=== PATIENT | female | born 1945 | race Caucasian/White ===

== ENCOUNTER → 2017-09-02 | Outpatient (CLI) | payer MEDICARE ==
[~2017-09-02] MED LIST: ATOR10TA24 PO; ENAL20TA99 PO; HYDR-2966 PO; IBUP-56 PO; IOPAMIDOL 76% 75 ML INFUS BTL 75 ML ONE; MULT-989 PO; NS(*) 0.9% 10 ML VIAL 10 ML ONE; ONDA4TAB PO; OXYC-373 PO; OXYC-374 PO; OXYC-865 PO; POTA20TA10 PO; PRED20TA6 PO; VITA1CAP46 PO
[2017-09-02 12:37] LABS: PLATELET COUNT, AUTOMATED 187 K/uL (150-450)
--- NOTE | 2017-09-02 16:13 | RADIOLOGY IMAGING REPORT ---
FACILITY: [facility] PATIENT NAME: Claire Han : 1945 MR: [id number] V: [id number] EXAM DATE: ORDERING PHYSICIAN: REYMUNDO TALBOT TECHNOLOGIST: Location: [facility] Patient: Claire Han : 1945 Visit/Account:[id number] Date of Sevice: 09/02/2017 CT abdomen with IV contrast CT pelvis with IV contrast History: Acute abdominal pain. History of peptic ulcer disease. COMPARISON STUDIES: none. TECHNIQUE: Axial CT images were obtained through the abdomen and pelvis during injection of nonioni c iodinated intravenous contrast. Reformatted coronal and sagittal images were also obtained. Contrast: 75 ml of Isovue-370 IV contrast. One of the following dose optimization techniques was utilized in the performance of this exam: Autom ated exposure control; adjustment of the mA and/or kV according to the patient's size; or use of an i terative reconstruction technique. Specific details can be referenced in the facility's radiology C T exam operational policy. FINDINGS: Chest bases: Negative Liver: Normal. Gallbladder and bile ducts: Gallbladder is present. Bile ducts are normal caliber. Spleen: size is normal. Pancreas: negative Adrenal glands: negative Kidneys: Right kidney anterior lateral cyst, 6 mm. Left kidney lower pole lateral cyst, 4 mm. Ther e are no renal stones or hydronephrosis. Pelvic structures: Uterus is surgically absent. Ovaries are not visualized. Bowel and mesenteries: Gastric antrum wall may be mildly thickened. The gastric fundus and body is incompletely distended. Duodenal bulb and C-loop are unremarkable. Colon is unremarkable. There is a normal appendix in the right lower abdominal quadrant. Ascites: None Free air: None Vessels: Minimal mural calcification of the abdominal aorta and right common iliac artery. Musculoskeletal: Negative Body wall: negative Lymph node assessment: negative IMPRESSION: 1. Potential thickening of the gastric antrum wall could be due to gastritis or peptic ulcer disease . The remainder of the stomach is poorly distended, and incompletely assessed by CT imaging. Consid er upper GI or upper endoscopy for further assessment. Report Dictated By: Cheri Suazo MD at 09/02/2017 2:56 PM Report E-Signed By: Cheri Suazo MD at 09/02/2017 4:09 PM ROLFN:SANDRITA
== END ==
LOC: CT 12:18
PROVIDERS: ATTEND Nurse Practitioner Family
DX: N28.1 Cyst of kidney, acquired (principal)
CPT/HCPCS: 36415; 74177; 85025; Q9967; 82040; 82247; 82310; 82374; 82435; 82565; 82947; 84075; 84132; 84155; 84295; 84450; 84460; 84520

== ENCOUNTER 2017-10-19 00:31 | Day surgery (SDC) | payer MEDICARE ==
[~2017-10-19] VITALS: Ht 154.9 cm; Wt 58.5 kg
[2017-10-19] VITALS (9 sets, daily range): BP systolic 74–141; BP diastolic 26–71
[~2017-10-19 00:31] MED LIST changes: +CALC-852 PO; +ENAL-242 PO; +GOLYTE PO; -IOPAMIDOL 76% 75 ML INFUS BTL 75 ML ONE; +MAGN100T PO; -NS(*) 0.9% 10 ML VIAL 10 ML ONE; +OMEP40CA48 PO; +SUCR1TAB85 PO; +TETR15DR9 OP; +VITA100T4 PO
[2017-10-19] MEDS ORDERED: NORMOSOL R SOLN(*) 1000 ML BAG 1,000 ML IV PRN (08:45)
[2017-10-19] MEDS ORDERED: LIDOCAINE/SOD BICARB 8.4% SYR ID ONE (08:45)
[2017-10-19] MEDS ORDERED: PROPOFOL EMUL(*) 10MG/ML 20 ML 40 ML ONE (08:52)
[2017-10-19] MEDS ORDERED: LIDOCAINE MPF 1% 5 ML VIAL ONE (08:52)
--- NOTE | 2017-10-19 10:28 | Short(Outpt) Discharge Summary ---
Discharge Summary Reason for Hosp/Final Diag: (1) Colon cancer screening Status: Chronic Hospital Course & Plan: EGD with biopsies and colonoscopy completed without problems. (2) Family history of polyps in the colon (3) Epigastric abdominal pain Status: Chronic (4) History of peptic ulcer disease Status: Chronic (5) Gastric wall thickening Status: Chronic Departure Discharge to: Home, Self Care Discharge Instructions Home Meds Active Scripts Peg/Electrolytes (GOLYTELY SOLUTION) 4,000 Ml Soln, 1 GAL PO ONCE, #1 GAL 0 Refills Prov:JUAN VASQUES MD 09/27/17 Reported Medications Calcium Carbonate/Vitamin D3 (CALCIUM + VITAMIN D TABLET) 1 Each Tablet, 1 EA PO QDAY 09/26/17 Magnesium Amino Acid Chelate (MAGNESIUM) Unknown Strength Tablet, PO QDAY 09/26/17 Vitamin E Mixed (VITAMIN E) Unknown Strength Tablet, PO QDAY 09/26/17 Tetrahydrozoline Hcl (EYE DROPS) Unknown Strength Drops, OP PRN 09/26/17 Omeprazole (OMEPRAZOLE) 40 Mg Capsule.dr, 40 MG PO BID, CAP 09/26/17 Sucralfate (CARAFATE) 1 Gm Tablet, 1 GM PO QID 09/26/17 Enalapril Maleate (VASOTEC) 20 Mg Tablet, 20 MG PO QDAY 09/26/17 Vitamin B Complex (VITAMIN B COMPLEX) 1 Each Capsule, 1 EACH PO QDAY, CAPSULE 08/18/16 Multivitamins-Min/Fa/Ginkgo (ONE DAILY FOR WOMEN 50+ ADV TB) 1 Each Tablet, 1 EACH PO DAILY 08/22/14 Potassium Chloride (Potassium Chloride) 20 Meq Tablet.er, 1 TAB PO DAILY 08/22/14 Hydrochlorothiazide (HYDROCHLOROTHIAZIDE) 25 Mg Tablet, 1 TAB PO QDAY TAKE ONE TABLET BY MOUTH EVERY DAY 06/07/14 Follow up Referrals: General Surgery - 11/15/17 @ Surgery, General with Juan Vasques Md You have a follow up appointment scheduled with Dr. Vasques on 11/15/17, at 11:00am. Diet: Regular Activity: As Tolerated Special Instructions: Both upper endoscopy and colonoscopy completed without problems and your colon prep was excellent (Good Job!!). I didn't find any ulcers, inflammation, cancer, or polyps in your upper GI tract or your colon. I performed some routine biopsies in your stomach and duodenum and I will see you back in my office on November 15 and we'll discuss these results and see how your symptoms are at that time. In any case, you should have another colonoscopy in 10 years, health permitting, if normal, this will be your last colonoscopy. JUAN VASQUES MD Oct 19, 2017 10:28
== END 2017-10-19 11:49 | disposition home or self-care (01) ==
LOC: OR 00:31
PROVIDERS: ATTEND Surgery
DX: Z12.11 Encounter for screening for malignant neoplasm of colon (principal); R10.13 Epigastric pain; Z83.71 Family history of colonic polyps
CPT/HCPCS: 00812; 43239; 87077; 88305; G0121; J2001; J2704

== ENCOUNTER 2018-07-26 10:06 | Outpatient (RCR) | payer MEDICARE | END 2018-07-26 18:00 | disposition home or self-care (01) | LOC: EDSTATUS 10:06 → MAMO 10:06 | PROVIDERS: ATTEND Nurse Practitioner Family | DX: Z02.9 Encounter for administrative examinations, unspecified (principal) ==

== ENCOUNTER → 2018-08-17 | Outpatient (CLI) | payer MEDICARE ==
--- NOTE | 2018-08-17 11:22 | RADIOLOGY IMAGING REPORT ---
FACILITY: [facility] [place] PATIENT NAME: Claire Han : 1945 MR: [id number] V: [id number] EXAM DATE: ORDERING PHYSICIAN: ULI HAIDER TECHNOLOGIST: [place] [facility] [place] : 1945 Visit/Account:[id number] Date of Sevice: 08/17/2018 DEXA Scan Clinical history: Decreased vitamin D. Comparison: DEXA scan from 12/19/2013. LUMBAR SPINE: The bone mineral density (BMD) measured from L1-L4 correlates with a Z-score of 1.4 and a T-score of -0.6 which is Normal as defined by the World Health Organization. The corresponding risk of fracture in the lumbar spine is 1-2 times increased compared with a young adult reference population. This v alue has increased by 2.1 % since the prior study. More than 5% change is considered significant. HIP: Bone mineral density (BMD) measured in the LEFT total hip region correlates with a Z-score 0.2 and a T-score of -1.7 which is osteopenia as defined by the World Health Organization. The corresponding r isk of fracture in the hip is 3-4 times increased compared to a young adult reference population. Thi s value has decrease by 4.9 % since the prior study. More than 5% change is considered significant. T score left femoral neck -2.5 Bone mineral density (BMD) measured in the Femoral Neck region measures 0.696 g/cm?. IMPRESSION: 1. Lumbar spine: Normal. There has been 2.1% increase in the bone mineral density since the previou s exam. 2. Left Total Hip: Osteopenia. There has been 4.9% decrease in the bone mineral density since the p revious exam. 3. Femoral Neck: Bone Mineral Density is 0.696 g/cm? The next DEXA scan of this patient should include the following sites: L1-L4 and the left hip. FRAX? WHO Fracture Risk Assessment Tool link: <http://www.shef.ac.uk/FRAX/tool.jsp?locationValue=9> PLEASE NOTE: 1) The World Health Organization defines low BMD as follows: T-score Normal > -1 Osteopenia < -1 and > -2.5 Osteoporosis < -2.5 without fractures Established osteoporosis < -2.5 with fractures 2) In general, you may wish to consider: Diagnosis Treatment Follow-up DEXA Normal BMD Prevention 2-3 years Osteopenia Prevention/therapy 1-2 years Osteoporosis Therapy Yearly 3) Fracture risk estimated from the T-score is more accurate for vertebral fractures (often spontane ous) than for hip fractures. Report Dictated By: Marcelle Harris MD at 08/17/2018 11:16 AM Report E-Signed By: Marcelle Harris MD at 08/17/2018 11:17 AM ROLFN:SANDRITA
--- NOTE | 2018-08-18 08:47 | RADIOLOGY IMAGING REPORT ---
[place] [facility] [place] NAME: DIANE BOLTON : [id number] MR: [id number] V: [id number] EXAM DATE: ORDERING PHYSICIAN: ULI HAIDER TECHNOLOGIST: Sharonda Mitchell PROCEDURE:BILATERAL DIGITAL SCREENING MAMMOGRAM WITH CAD ASSISTED INTERPRETATION & 3D TOMOSYNTHESIS COMPARISON:Prior mammograms 04/15/16, 01/24/15, 12/19/13. INDICATIONS:SCREENING FINDINGS: The breasts are almost entirely fatty. The parenchymal pattern has remained stable allowing for difference in mammographic technique & patient positioning. There is an area of postsurgical scaring in the 12 o'clock position of the Left breast from previous biopsy. DIAGNOSTIC CATEGORY 2--BENIGN FINDING. RECOMMENDATIONS: ROUTINE MAMMOGRAM AND CLINICAL EVALUATION. IMPRESSION: BIRADS 2: Benign finding. No significant abnormality is seen. Dictated by: Marcelle Harris M.D. on 08/17/2018 at 16:05 Transcribed by: SINAN on 08/18/2018 at 7:55 Approved by: Marcelle Harris M.D. on 08/18/2018 at 8:46 [facility]
== END ==
LOC: MAMO 01:13
PROVIDERS: ATTEND Nurse Practitioner Family
DX: Z12.31 Encounter for screening mammogram for malignant neoplasm of breast (principal); M85.88 Other specified disorders of bone density and structure, other site
CPT/HCPCS: 77063; 77067; 77080

== ENCOUNTER 2019-01-09 16:34 | Inpatient (IN) | payer MEDICARE ==
--- NOTE | 2019-01-09 16:47 | ER Report ---
History and Physical Time Seen By MD: 16:45 HPI/ROS CHIEF COMPLAINT: Hypertension, general malaise HISTORY OF PRESENT ILLNESS: Patient is a 73-year-old female here with complaints of general malaise for the past several days ever since going on a trip to [place]. Patient did start Zyrtec which is a new medication for her. She also was increased on her enalapril which she takes in concert with hydrochlorothiazide. On Tuesday, the nurse took her blood pressure and found that she was mildly hypertensive with a systolic in the 150s however today upon recheck she was found to have blood pressure systolic greater than 200, diastolic around 100. Patient denies fevers, chills, chest pain, shortness breath, nausea, vomiting. REVIEW OF SYSTEMS: Constitutional: No fever, no chills. Eyes: No discharge. ENT: No sore throat. Cardiovascular: No chest pain, no palpitations. Worsening hypertension Respiratory: No cough, no shortness of breath. Gastrointestinal: No abdominal pain, no vomiting. Genitourinary: No hematuria. Musculoskeletal: No back pain. Skin: No rashes. Neurological: No headache. Allergies: Coded Allergies: hydrocodone (Unverified Adverse Reaction, Intermediate, NAUSEA/VOMITING, 01/09/19) Home Meds Active Scripts Omeprazole (OMEPRAZOLE) 40 Mg Capsule.dr, 1 CAP PO DAILY, #60 CAP 6 Refills Prov:JUAN VASQUES MD 11/21/17 Sucralfate (CARAFATE) 1 Gm Tablet, 1 GM PO QID PRN for DYSPEPSIA, #60 TAB 3 Refills Prov:JUAN VASQUES MD 11/21/17 Reported Medications Calcium Carbonate/Vitamin D3 (CALCIUM + VITAMIN D TABLET) 1 Each Tablet, 1 EA PO QDAY 09/26/17 Magnesium Amino Acid Chelate (MAGNESIUM) Unknown Strength Tablet, PO QDAY 09/26/17 Vitamin E Mixed (VITAMIN E) Unknown Strength Tablet, PO QDAY 09/26/17 Tetrahydrozoline Hcl (EYE DROPS) Unknown Strength Drops, OP PRN 09/26/17 Enalapril Maleate (VASOTEC) 20 Mg Tablet, 20 MG PO QDAY 09/26/17 Vitamin B Complex (VITAMIN B COMPLEX) 1 Each Capsule, 1 EACH PO QDAY, CAPSULE 08/18/16 Multivitamins-Min/Fa/Ginkgo (ONE DAILY FOR WOMEN 50+ ADV TB) 1 Each Tablet, 1 EACH PO DAILY 08/22/14 Potassium Chloride (Potassium Chloride) 20 Meq Tablet.er, 1 TAB PO DAILY 08/22/14 Hydrochlorothiazide (HYDROCHLOROTHIAZIDE) 25 Mg Tablet, 1 TAB PO QDAY TAKE ONE TABLET BY MOUTH EVERY DAY 06/07/14 Hx Smoking: No Smoking Status: Never Smoker Hx Alcohol Use: Yes Constitutional Vital Sign - Last 24 Hours 01/09/19 01/09/19 01/09/19 01/09/19 16:34 16:40 16:45 16:54 Temp 97.6 Pulse 61 62 Resp 12 B/P (MAP) 214/102 (139) 209/107 (141) Pulse Ox 95 O2 Delivery Room Air 01/09/19 01/09/19 01/09/19 17:00 17:04 17:18 Pulse 56 Resp 27 B/P (MAP) 211/96 (134) 189/102 (131) Pulse Ox 95 Physical Exam General Appearance: The patient is alert, has no immediate need for airway protection and no signs of toxicity. No acute distress Eyes: Pupils equal and round no pallor or injection. ENT, Mouth: Mucous membranes are moist. Respiratory: There are no retractions, lungs are clear to auscultation. Cardiovascular: Regular rate and rhythm. Gastrointestinal: Abdomen is soft and non tender, no masses, bowel sounds normal. Neurological: No focal neurological deficits on examination Skin: Warm and dry, no rashes. Musculoskeletal: Neck is supple non tender. Extremities are nontender, nonswollen and have full range of motion. DIFFERENTIAL DIAGNOSIS: After history and physical exam differential diagnosis was considered for essential versus secondary hypertension, electrolyte abnormality, infection, medication side effect Medical Decision Making Data Points Result Diagram: 01/09/19 1651 01/09/19 1651 Laboratory Hematology Test 01/09/19 16:51 Red Blood Count 5.26 M/uL (4.17-5.56) Mean Corpuscular Volume 87.1 fL (80.0-96.0) Mean Corpuscular Hemoglobin 29.9 pg (26.0-33.0) Mean Corpuscular Hemoglobin Concent 34.3 g/dL (32.0-36.0) Red Cell Distribution Width 13.1 % (11.5-14.5) Mean Platelet Volume 9.2 fL (7.2-11.1) Neutrophils (%) (Auto) 47.4 % (39.4-72.5) Lymphocytes (%) (Auto) 37.9 % (17.6-49.6) Monocytes (%) (Auto) 13.1 % (4.1-12.4) Eosinophils (%) (Auto) 0.8 % (0.4-6.7) Basophils (%) (Auto) 0.8 % (0.3-1.4) Nucleated RBC Relative Count (auto) 0.1 /100WBC Neutrophils # (Auto) 2.7 K/uL (2.0-7.4) Lymphocytes # (Auto) 2.2 K/uL (1.3-3.6) Monocytes # (Auto) 0.7 K/uL (0.3-1.0) Eosinophils # (Auto) 0.0 K/uL (0.0-0.5) Basophils # (Auto) 0.0 K/uL (0.0-0.1) Nucleated RBC Absolute Count (auto) 0.00 K/uL Sodium Level 139 mmol/L (137-145) Potassium Level 3.7 mmol/L (3.5-5.0) Chloride Level 100 mmol/L (98-107) Carbon Dioxide Level 25 mmol/L (22-31) Blood Urea Nitrogen 10 mg/dl (7-18) Creatinine 0.70 mg/dl (0.52-1.04) Glomerular Filtration Rate Calc > 60.0 Random Glucose 107 mg/dl (75-110) Calcium Level 10.9 mg/dl (8.4-10.2) Total Bilirubin 0.7 mg/dl (0.2-1.3) Aspartate Amino Transf (AST/SGOT) 35 U/L (0-35) Alanine Aminotransferase (ALT/SGPT) 38 U/L (0-56) Alkaline Phosphatase 114 U/L (0-126) Troponin I < 0.012 ng/ml Total Protein 8.1 g/dl (6.3-8.2) Albumin 4.8 g/dl (3.5-5.0) Lipase 93 U/L (23-300) Chemistry Test 01/09/19 16:51 White Blood Count 5.7 k/uL (4.5-11.0) Red Blood Count 5.26 M/uL (4.17-5.56) Hemoglobin 15.7 g/dL (12.0-16.0) Hematocrit 45.8 % (34.0-47.0) Mean Corpuscular Volume 87.1 fL (80.0-96.0) Mean Corpuscular Hemoglobin 29.9 pg (26.0-33.0) Mean Corpuscular Hemoglobin Concent 34.3 g/dL (32.0-36.0) Red Cell Distribution Width 13.1 % (11.5-14.5) Platelet Count 193 K/uL (150-450) Mean Platelet Volume 9.2 fL (7.2-11.1) Neutrophils (%) (Auto) 47.4 % (39.4-72.5) Lymphocytes (%) (Auto) 37.9 % (17.6-49.6) Monocytes (%) (Auto) 13.1 % (4.1-12.4) Eosinophils (%) (Auto) 0.8 % (0.4-6.7) Basophils (%) (Auto) 0.8 % (0.3-1.4) Nucleated RBC Relative Count (auto) 0.1 /100WBC Neutrophils # (Auto) 2.7 K/uL (2.0-7.4) Lymphocytes # (Auto) 2.2 K/uL (1.3-3.6) Monocytes # (Auto) 0.7 K/uL (0.3-1.0) Eosinophils # (Auto) 0.0 K/uL (0.0-0.5) Basophils # (Auto) 0.0 K/uL (0.0-0.1) Nucleated RBC Absolute Count (auto) 0.00 K/uL Glomerular Filtration Rate Calc > 60.0 Calcium Level 10.9 mg/dl (8.4-10.2) Total Bilirubin 0.7 mg/dl (0.2-1.3) Aspartate Amino Transf (AST/SGOT) 35 U/L (0-35) Alanine Aminotransferase (ALT/SGPT) 38 U/L (0-56) Alkaline Phosphatase 114 U/L (0-126) Troponin I < 0.012 ng/ml Total Protein 8.1 g/dl (6.3-8.2) Albumin 4.8 g/dl (3.5-5.0) Lipase 93 U/L (23-300) ED Course/Re-evaluation ED Course Patient is a 73-year-old female here with complaints of hypertension which is progressively worsened over the course of past several days. Patient recently went to [place] and started taking Zyrtec for allergies. She did also have an increase in her enalapril which she takes for an antihypertensive as well as hydrochlorothiazide. Labs were unremarkable, creatinine was stable, there is no leukocytosis. EKG was ordered and pending at time of admission. Patient was bolu sed with labetalol 20 mg however due to the patient's bradycardia, repeat bolus was not administered. Patient only had mild improvement down into the upper 180s systolic, 100 upper 90s diastolic. I discussed the patient with Dr. Atkins who is the hospitalist on today who admitted the patient for further treatment. Troponin was found to be negative which was completed due to the patient's complaint of chest pressure. Patient also complained of some blurry vision however she is legally blind at baseline. Patient was given amlodipine 5 mg by mouth and patient was admitted to the floor for further care. Decision to Disposition Date: Jan 09, 2019 Decision to Disposition Time: 17:47 Depart Departure Latest Vital Signs Vital Signs Date Time Temp Pulse Resp B/P (MAP) Pulse Ox O2 Delivery O2 Flow Rate FiO2 01/09/19 17:18 189/102 (131) 01/09/19 17:04 56 27 95 01/09/19 16:45 97.6 Room Air Impression: Primary Impression: Hypertensive urgency Condition: Condition Unchanged Disposition: Admitted from ER Referrals: REYMUNDO TALBOT (PCP) ANTONIETA CERDA DO Jan 09, 2019 16:47
[2019-01-09] MEDS ORDERED: LABETALOL HCL 100 MG/20ML VIAL IVP ONE (16:55)
[2019-01-09 17:07] LABS: PLATELET COUNT, AUTOMATED 193 K/uL (150-450)
[2019-01-09] MEDS ORDERED: amLODIPine BESYL(*) 5 MG TAB PO ONE (17:45)
--- NOTE | 2019-01-09 18:03 | EKG ---
FACILITY: PATIENT NAME: DIANE BOLTON : [id number] MR: [id number] V: [id number] EXAM DATE: ORDERING PHYSICIAN: ANTONIETA CERDA TECHNOLOGIST: Test Reason : chest discomfort Blood Pressure : / mmHG Vent. Rate : 060 BPM Atrial Rate : 060 BPM P-R Int : 160 ms QRS Dur : 082 ms QT Int : 442 ms P-R-T Axes : 063 003 066 degrees QTc Int : 442 ms Sinus rhythm with marked sinus arrhythmia Otherwise normal ECG When compared with ECG of 13-AUG-2014 09:35, Nonspecific T wave abnormality no longer evident in Inferior leads Nonspecific T wave abnormality, improved in Lateral leads Confirmed by CRYSTAL BEY ([id number]) on 01/09/2019 6:13:57 PM Referred By: Confirmed By:CRYSTAL BEY
[2019-01-09] MEDS ORDERED: ENALAPRIL MALEATE 10 MG TAB PO SCH (22:05)
[2019-01-09] MEDS ORDERED: CALCIUM CARBONATE 500 MG CHEW PO PRN (22:05)
[2019-01-09] MEDS ORDERED: ACETAMINOPHEN 325 MG TAB PO PRN (22:05)
[2019-01-09] MEDS ORDERED: INFLUENZA VIRUS VAC 0.5ML SYR IM ONLY ONE (22:05)
[2019-01-09] MEDS: PANTOPRAZOLE SOD 40 MG TABEC PO SCH (22:36)
[2019-01-09 23:56] VITALS: BP 144/60
--- NOTE | 2019-01-10 00:05 | History & Physical ---
History of Present Illness History of Present Illness 73yo female with hypertension who came to the ER for elevated BP. About a month ago, she started taking Zyrtec for allergies. She was in [facility] and developed a sore throat, sores on the roof of her mouth, chills and tiredness. She never saw a provider. The sores in her mouth and sore throat resolved. She has continued to take the Zyrtec. The tiredness has continued. She has never had allergies in the past. She has noted more labile BP over the last couple weeks. She was increased on her enalapril from 20mg in the morning and 5mg was added in the evening. Yesterday, she switched it to just 25mg in the evening, so missed the morning dose. For the last month, she has had intermittent chest pain that lasts a couple minutes. It is mild but occurs multiple times a day. There are no alleviating or aggravating factors. No associated radiation or SOB or nausea. She is responsible for her medications despite her legal blindness. History Problems: (1) Dyspepsia Status: Chronic (2) Legal blindness Status: Chronic (3) HTN (hypertension) Other Past Medical Hx Rare alcohol. No tobacco. Home Meds Active Scripts Omeprazole (OMEPRAZOLE) 40 Mg Capsule.dr, 1 CAP PO DAILY, #60 CAP 6 Refills Prov:JUAN VASQUES MD 11/21/17 Sucralfate (CARAFATE) 1 Gm Tablet, 1 GM PO QID PRN for DYSPEPSIA, #60 TAB 3 Refills Prov:JUAN VASQUES MD 11/21/17 Reported Medications Calcium Carbonate/Vitamin D3 (CALCIUM + VITAMIN D TABLET) 1 Each Tablet, 1 EA PO QDAY 09/26/17 Magnesium Amino Acid Chelate (MAGNESIUM) Unknown Strength Tablet, PO QDAY 09/26/17 Vitamin E Mixed (VITAMIN E) Unknown Strength Tablet, PO QDAY 09/26/17 Tetrahydrozoline Hcl (EYE DROPS) Unknown Strength Drops, OP PRN 09/26/17 Enalapril Maleate (VASOTEC) 20 Mg Tablet, 20 MG PO QDAY 09/26/17 Vitamin B Complex (VITAMIN B COMPLEX) 1 Each Capsule, 1 EACH PO QDAY, CAPSULE 08/18/16 Multivitamins-Min/Fa/Ginkgo (ONE DAILY FOR WOMEN 50+ ADV TB) 1 Each Tablet, 1 EACH PO DAILY 08/22/14 Potassium Chloride (Potassium Chloride) 20 Meq Tablet.er, 1 TAB PO DAILY 08/22/14 Hydrochlorothiazide (HYDROCHLOROTHIAZIDE) 25 Mg Tablet, 1 TAB PO QDAY TAKE ONE TABLET BY MOUTH EVERY DAY 06/07/14 Allergies: Coded Allergies: hydrocodone (Unverified Adverse Reaction, Intermediate, NAUSEA/VOMITING, 01/09/19) Patient History: FH: Alzheimers disease MOTHER, , Age:92 FH: cancer BROTHER OR SISTER, FH: heart failure BROTHER OR SISTER, FH: kidney cancer MOTHER, , Age:92 BROTHER OR SISTER FH: prostate cancer FATHER, , Age:94 FH: skin cancer BROTHER OR SISTER Polyps in the colon Visual disorder BROTHER OR SISTER Hx Smoking: No Smoking Status: Never Smoker Caffeine/Cups Per Day: NONE Hx Alcohol Use: Yes Hx Substance Use Disorder: No Social Drug Use: Never Review of Systems All Systems Reviewed/Normal: Yes, Except as Noted Exam Vital Signs Vital Signs Date Time Temp Pulse Resp B/P (MAP) Pulse Ox O2 Delivery O2 Flow Rate FiO2 01/09/19 18:00 225/111 (149) 01/09/19 17:53 54 12 97 01/09/19 16:45 97.6 Room Air General Appearance: Alert, Awake, No Acute Distress Neuro: Other Eyes: Other (Pupils are sluggish) Cardiovascular: Regular Rate and Rhythm Respiratory: Clear to Auscultation GI: Abd Soft and Non-Tender Extremities: Warm, Perfused; No Edema Integumentary: No Jaundice, No Cyanosis Medical Decision Making Data Points Result Diagram: 01/09/19165001/09/191650 Item Value Date Time Neutrophils (%) (Auto) 47.4 % 01/09/19 165 Lymphocytes (%) (Auto) 37.9 % 01/09/19 165 Troponin I < 0.012 ng/ml 01/09/19 165 Calcium Level 10.9 mg/dl H 01/09/19 165 Total Bilirubin 0.7 mg/dl 01/09/19 165 Aspartate Amino Transf (AST/SGOT) 35 U/L 01/09/19 1651 Alanine Aminotransferase (ALT/SGPT) 38 U/L 01/09/19 165 Urine RBC None /HPF 01/09/19 1845 Urine WBC None /HPF 01/09/191844 Urine Leukocyte Esterase Negative 01/09/191844 EKG / Imaging EKG Interpretation Vent. Rate : 060 BPM Atrial Rate : 060 BPM P-R Int : 160 ms QRS Dur : 082 ms QT Int : 442 ms P-R-T Axes : 063 003 066 degrees QTc Int : 442 ms Sinus rhythm with marked sinus arrhythmia Otherwise normal ECG When compared with ECG of 13-AUG-2014 09:35, Nonspecific T wave abnormality no longer evident in Inferior leads Nonspecific T wave abnormality, improved in Lateral leads Confirmed by CRYSTAL BEY ([id number]) on 01/09/2019 6:13:57 PM Assessment and Plan Problems: (1) Hypertensive urgency Status: Acute Assessment & Plan: She has had labile blood pressures for a couple of weeks. SBP in the ER was in the low 200's and DBP was in the low 100's. BUN/Cr wnl. Troponin wnl. Her BP didn't improve much with labetalol and she became a bit bradycardic. Yesterday, she moved her enalapril to be at night. She is responsible for her medications despite her legal blindness. Zyrtec was started about a month ago so will be stopped. She was given one dose of amlodipine 5mg in t ER, which has dropped her SBP to the 170's and DBP to the 90's. She will be continued on the enalapril but at 20mg instead of 25mg and will be continued at night. HCTZ to be continued in the morning. She will get prn Vasotec for elevated BP. She gets intermittent chest pain, but I suspect it is related to her dyspepsia. See below. (2) Dyspepsia Status: Chronic Assessment & Plan: She had an EGD and colonscopy in 11/02. They were normal. She was to continue the omeprazole and Carafate. She admits that she only takes those medications intermittently. Will give a dose of Protonix tonight and then scheduled in the morning. Will see if it helps her chronic intermittent mild chest pain. Carafate could be added if it is not improving. (3) Legal blindness Status: Chronic Copies to: REYMUNDO TALBOTP ; Venous Thromboembolism Antithrombotics Is Pt On Any Antithrombotics?: No Exam Sepsis Risk: No Definite Risk CRYSTAL BEY MD Jan 10, 2019 00:05
[2019-01-10 06:28] LABS: PLATELET COUNT, AUTOMATED 182 K/uL (150-450)
[2019-01-10 07:41] VITALS: BP 165/67
[2019-01-10] MEDS: PANTOPRAZOLE SOD 40 MG TABEC PO SCH (08:19)
[2019-01-10] MEDS ORDERED: HYDROCHLOROTHIAZIDE 25 MG TAB PO SCH (09:00)
[2019-01-10] MEDS ORDERED: POTASSIUM CHL 20 MEQ TABCR PO SCH (09:00)
--- NOTE | 2019-01-10 09:10 | Hospitalist Depart ---
Discharge Summary Reason for Hosp/Final Diag: (1) Hypertensive urgency Status: Acute Hospital Course & Plan: She has had labile blood pressures for a couple of weeks. She was given a dose of labetalol, but this caused bradycardia. We resumed her home medications, and now her blood pressure is under better control. It is suspected that she can not see her medication bottles and has not been taking them appropriately. Home health has been requested to help her with medication administration. (2) Dyspepsia Status: Chronic Hospital Course & Plan: She had an EGD and colonscopy in 11/02. They were normal. She remains on the omeprazole and Carafate. (3) Legal blindness Status: Chronic Departure Latest Vital Signs Vital Signs 01/10/19 01/10/19 03:55 07:41 Temp 97.4 Pulse 50 Resp 14 B/P (MAP) 165/67 (99) Pulse Ox 98 O2 Delivery Room Air Weight (Pounds): 129 Result Diagram: 01/10/1939 01/10/19538 Condition: Improved Discharge: Home, Home Health Home Health RN Follow Up For: Medication Management, Nursing Assessment Discharge Instructions Home Meds Active Scripts Omeprazole (OMEPRAZOLE) 40 Mg Capsule.dr, 1 CAP PO DAILY, #60 CAP 6 Refills Prov:JUAN VASQUES MD 11/21/17 Sucralfate (CARAFATE) 1 Gm Tablet, 1 GM PO QID PRN for DYSPEPSIA, #60 TAB 3 Refills Prov:JUAN VASQUES MD 11/21/17 Reported Medications Calcium Carbonate/Vitamin D3 (CALCIUM + VITAMIN D TABLET) 1 Each Tablet, 1 EA PO QDAY 09/26/17 Magnesium Amino Acid Chelate (MAGNESIUM) Unknown Strength Tablet, PO QDAY 09/26/17 Vitamin E Mixed (VITAMIN E) Unknown Strength Tablet, PO QDAY 09/26/17 Tetrahydrozoline Hcl (EYE DROPS) Unknown Strength Drops, OP PRN 09/26/17 Enalapril Maleate (VASOTEC) 20 Mg Tablet, 20 MG PO QDAY 09/26/17 Vitamin B Complex (VITAMIN B COMPLEX) 1 Each Capsule, 1 EACH PO QDAY, CAPSULE 08/18/16 Multivitamins-Min/Fa/Ginkgo (ONE DAILY FOR WOMEN 50+ ADV TB) 1 Each Tablet, 1 EACH PO DAILY 08/22/14 Potassium Chloride (Potassium Chloride) 20 Meq Tablet.er, 1 TAB PO DAILY 08/22/14 Hydrochlorothiazide (HYDROCHLOROTHIAZIDE) 25 Mg Tablet, 1 TAB PO QDAY TAKE ONE TABLET BY MOUTH EVERY DAY 06/07/14 Diet: Regular Activity: As Tolerated Copies to: REYMUNDO MUIR ; Venous Thromboembolism Antithrombotics Is Pt On Any Antithrombotics?: No [id number]-[id number] Certification Face to Face Home Health Certification Patient's Primary Care Provider: Reymundo Muir Institutional Provider conducted the [id number] encounter. Electronic Undersigning Physician Certifies Home Health. I certify that the patient has been under my care and that I had a [id number] encounter that meets the physician [id number] encounter requirements with this patient. This patient is home-bound due to safety issues and continues to require assistance with ADL's. I certify that based on my findings, that Nursing, Aides and the following Home Health services are medically necessary: Medical Necessity: Nursing Date Face to Face Conducted: Jan 10, 2019 JUAN FERNANDO DO Jan 10, 2019 09:10
== END 2019-01-10 12:10 | disposition home health service (06) | DRG 305 ==
LOC: ER 16:48 → EDBEDREQSVC 18:01 → MED 18:06
PROVIDERS: ADMIT Internal Medicine; ATTEND Internal Medicine
DX: I16.0 Hypertensive urgency (principal); R10.13 Epigastric pain; H54.8 Legal blindness, as defined in USA; I10 Essential (primary) hypertension; Z88.5 Allergy status to narcotic agent
CPT/HCPCS: 36415; 81001; 82040; 82247; 82310; 82374; 82435; 82565; 82947; 83690; 83735; 84075; 84132; 84155; 84295; 84450; 84460; 84484; 84520; 85025; 93005; 96374; 99284

== ENCOUNTER 2019-01-10 17:22 | Emergency (ER) | payer MEDICARE ==
--- NOTE | 2019-01-10 17:43 | ER Report ---
History and Physical Time Seen By MD: 17:29 Hx. of Stated Complaint: PATIENT WAS SEEN IN THE ER AND ADMITTED TO THE HOSPITAL FOR HYPERTENSION. SHE WAS RELEASED THIS MORNING AND CONTINUES TO HAVE HIGH BLOOD PRESSURE HPI/ROS CHIEF COMPLAINT: High blood pressure HISTORY OF PRESENT ILLNESS: This is a 73-year-old female who presents to the emergency department for high blood pressure. Patient was seen and evaluated in the emergency department yesterday, admitted to the medical floor for elevated blood pressure, was discharged today around noon, her blood pressure was 165/64, was started on her routine medications which included enalapril and has chlorothiazide. Patient states she's been doing okay at home, a friend stopped by and took her blood pressure noted her blood pressure to be 200 systolic. No other complaints, no headaches, no chest pain or shortness of breath. No nausea or vomiting. No fevers or chills. There was a concern that perhaps she is not managing her blood pressure medications appropriately, she is legally blind. The patient does state that she keeps her 5 mg enalapril on the top shelf, 20 mg enalapril and the metal shelf and her hydrochlorothiazide and potassium on the bottom shelf. REVIEW OF SYSTEMS: Constitutional: No fever, no chills. Eyes: No discharge. ENT: No sore throat. Cardiovascular: As above. Respiratory: No cough, no shortness of breath. Gastrointestinal: No abdominal pain, no vomiting. Genitourinary: No hematuria. Musculoskeletal: No back pain. Skin: No rashes. Neurological: No headache. Allergies: Coded Allergies: hydrocodone (Unverified Adverse Reaction, Intermediate, NAUSEA/VOMITING, 01/09/19) Home Meds Active Scripts Omeprazole (OMEPRAZOLE) 40 Mg Capsule.dr, 1 CAP PO DAILY, #60 CAP 6 Refills Prov:JUAN VASQUES MD 11/21/17 Sucralfate (CARAFATE) 1 Gm Tablet, 1 GM PO QID PRN for DYSPEPSIA, #60 TAB 3 Refills Prov:JUAN VASQUES MD 11/21/17 Reported Medications Calcium Carbonate/Vitamin D3 (CALCIUM + VITAMIN D TABLET) 1 Each Tablet, 1 EA PO QDAY 09/26/17 Magnesium Amino Acid Chelate (MAGNESIUM) Unknown Strength Tablet, PO QDAY 09/26/17 Vitamin E Mixed (VITAMIN E) Unknown Strength Tablet, PO QDAY 09/26/17 Tetrahydrozoline Hcl (EYE DROPS) Unknown Strength Drops, OP PRN 09/26/17 Enalapril Maleate (VASOTEC) 20 Mg Tablet, 20 MG PO QDAY 09/26/17 Vitamin B Complex (VITAMIN B COMPLEX) 1 Each Capsule, 1 EACH PO QDAY, CAPSULE 08/18/16 Multivitamins-Min/Fa/Ginkgo (ONE DAILY FOR WOMEN 50+ ADV TB) 1 Each Tablet, 1 EACH PO DAILY 08/22/14 Potassium Chloride (Potassium Chloride) 20 Meq Tablet.er, 1 TAB PO DAILY 08/22/14 Hydrochlorothiazide (HYDROCHLOROTHIAZIDE) 25 Mg Tablet, 1 TAB PO QDAY TAKE ONE TABLET BY MOUTH EVERY DAY 06/07/14 Past Medical/Surgical History The patient has a past medical and surgical history of "leaky valve", angina, hypertension, hypercholesterolemia, GERD, gastric ulcer, Ehrman shoulder pain, arthritis, broken collarbone, broken ribs, opticatrophy, legally blind, hysterectomy, angiogram, cataract surgery with implants, breast biopsy and lumpectomy. Reviewed Nurses Notes: Yes Hx Smoking: No Smoking Status: Never Smoker Hx Substance Use Disorder: No Hx Alcohol Use: Yes Constitutional Vital Sign - Last 24 Hours 01/10/19 01/10/19 01/10/19 01/10/19 17:28 17:28 17:32 17:33 Temp 97.7 Pulse 60 Resp 20 B/P (MAP) 235/101 (145) 235/101 208/93 (131) Pulse Ox 97 96 O2 Delivery Room Air 01/10/19 01/10/19 01/10/19 01/10/19 17:39 17:42 17:50 17:52 Pulse 56 58 Resp 24 12 B/P (MAP) 215/91 (132) 210/91 (130) Pulse Ox 94 95 01/10/19 01/10/19 01/10/19 01/10/19 18:00 18:02 18:07 18:10 Pulse 56 56 Resp 11 11 B/P (MAP) 213/93 (133) 198/82 (120) Pulse Ox 96 99 01/10/19 01/10/19 01/10/19 01/10/19 18:17 18:20 18:27 18:30 Pulse 55 54 Resp 7 5 B/P (MAP) 200/79 (119) 214/96 (135) Pulse Ox 92 93 01/10/19 01/10/19 01/10/19 01/10/19 18:37 18:42 18:50 18:52 Pulse 56 53 55 Resp 8 21 27 B/P (MAP) 220/92 (134) Pulse Ox 92 92 93 01/10/19 01/10/19 01/10/19 01/10/19 18:57 19:00 19:07 19:10 Pulse 57 55 Resp 9 19 B/P (MAP) 206/85 (125) 206/83 (124) Pulse Ox 92 91 01/10/19 01/10/19 01/10/19 01/10/19 19:17 19:20 19:27 19:30 Pulse 54 54 Resp 11 23 B/P (MAP) 181/87 (118) 184/83 (116) 134/74 (94) Pulse Ox 93 91 01/10/19 01/10/19 01/10/19 01/10/19 19:37 19:40 19:45 19:50 Pulse 54 56 Resp 16 13 B/P (MAP) 178/67 (104) 158/68 (98) Pulse Ox 92 86 01/10/19 19:55 Pulse 53 Resp 7 Pulse Ox 90 Physical Exam General Appearance: The patient is alert, has no immediate need for airway protection and no signs of toxicity. Eyes: Pupils equal and round no pallor or injection. ENT, Mouth: Mucous membranes are moist. Respiratory: There are no retractions, lungs are clear to auscultation. Cardiovascular: Regular rate and rhythm. Gastrointestinal: Abdomen is soft and non tender, no masses, bowel sounds normal. Neurological: Alert and oriented x4. Moving all extremities, following all commands. No focal neuro deficits. Skin: Warm and dry, no rashes. Musculoskeletal: Neck is supple non tender. Extremities are nontender, nonswollen and have full range of motion. DIFFERENTIAL DIAGNOSIS: After history and physical exam differential diagnosis was considered for stroke, TIA, myocardial infarction, hypertensive crisis, hypertensive urgency. Medical Decision Making ED Course/Re-evaluation ED Course The patient was admitted to room. A history and physical were obtained. Differential diagnoses were considered. After a lengthy discussion with patient and her son who is at the bedside, we did decide to proceed with a more conservative approach as the patient was asymptomatic upon arrival. She was given a 0.1 mg by mouth clonidine tablets, a Christianson this did end up improving her blood pressure, as noted below, I also spoke with the hospitalist regarding the case, as noted below, patient was discharged home, she will follow-up with her primary care provider and likely establish care with our gerontologist. They were agreeable with this plan of care and discharged home. 01/10/2019 7:31:18 pm I did speak with Dr. Hyde, the hospitalist, as the patient is asymptomatic, the blood pressures have begun to improve after the 0.1 mg clonidine, he'll I both felt the patient would be appropriate to go home and follow-up with her primary care provider tomorrow. Also recommended following up with our gerontologist Dr. Glover. 01/10/2019 7:43:48 pm the hospital pressures 130s systolic and 150s systolic, patient remained asymptomatic while in the emergency department. Decision to Disposition Date: Jan 10, 2019 Decision to Disposition Time: 19:43 Depart Departure Latest Vital Signs Vital Signs Date Time Temp Pulse Resp B/P (MAP) Pulse Ox O2 Delivery O2 Flow Rate FiO2 01/10/19 19:55 53 7 90 01/10/19 19:50 158/68 (98) 01/10/19 17:28 97.7 Room Air Impression: Primary Impression: HTN (hypertension) Condition: Improved Disposition: HOME OR SELF-CARE Referrals: AALIYAH TALBOT (PCP) 2 Days JUSTIN GLOVER MD Patient Instructions: Hypertension (ED) Additional Instructions: Please follow up with Aaliyah tomorrow, for reevaluation. It is always best to take the blood pressures first thing in the morning, but not on a daily basis, typically every other day or once a week. Please speak with her about an ambulatory 24 hour blood pressure monitor. Continue your regular medications. Drink plenty of fluids. Get plenty of rest tonight. Return to the ED for any other concerns or worsening symptoms. Please contact Dr. Glover's office to schedule an appointment for gerontologic care. Problem Qualifiers Primary Impression: HTN (hypertension) Hypertension type: essential hypertension Qualified Codes: I10 - Essential (primary) hypertension JAIR BALESP-BC Jan 10, 2019 17:43
[2019-01-10] MEDS ORDERED: cloNIDine HCL 0.1 MG TAB PO ONE (18:25)
[2019-01-10 19:50] VITALS: BP 158/68
== END 2019-01-10 19:58 | disposition home or self-care (01) ==
LOC: ER 17:25
DX: I10 Essential (primary) hypertension (principal)
CPT/HCPCS: 99283; A9270

== ENCOUNTER 2019-01-13 18:13 | Emergency (ER) | payer MEDICARE ==
--- NOTE | 2019-01-13 18:23 | ER Report ---
History and Physical Time Seen By MD: 18:21 HPI/ROS CHIEF COMPLAINT: elevated blood pressure and headache behind eyes. HISTORY OF PRESENT ILLNESS: This is a 73 year old female. She has been having problems with blood pressure recently. Is on Enalapril 20mg in the morning and 5mg in the evening, Hydrochlorathiazide 25mg in the morning, and started on Amlodipine 2.5mg a few days ago. Today with severe elevation of blood pressure again, despite this. With headache. Legally blind, so no vision changes, but pain behind eyes. Has sister with similar problems who also had similar trouble and ended up having an WA followed by anoxic brain injury, so she is worried about this. No fevers or chils. No shortness of breath. No chest pain. Has had some swelling in ankles since starting the amlodipine. No nausea or vomiting. Normal bowel and bladder function. Allergies: Coded Allergies: hydrocodone (Unverified Adverse Reaction, Intermediate, NAUSEA/VOMITING, 01/09/19) Home Meds Active Scripts Clonidine Hcl (CLONIDINE HCL) 0.1 Mg Tablet, 0.1 MG PO BID PRN for HYPERTENSION, #20 TAB 0 Refills take one tablet twice a day if needed for elevated blood pressure Prov:LARRY ROY MD 01/13/19 Omeprazole (OMEPRAZOLE) 40 Mg Capsule.dr, 1 CAP PO DAILY, #60 CAP 6 Refills Prov:JUAN VASQUES MD 11/21/17 Sucralfate (CARAFATE) 1 Gm Tablet, 1 GM PO QID PRN for DYSPEPSIA, #60 TAB 3 Refills Prov:JUAN VASQUES MD 11/21/17 Reported Medications Calcium Carbonate/Vitamin D3 (CALCIUM + VITAMIN D TABLET) 1 Each Tablet, 1 EA PO QDAY 09/26/17 Magnesium Amino Acid Chelate (MAGNESIUM) Unknown Strength Tablet, PO QDAY 09/26/17 Vitamin E Mixed (VITAMIN E) Unknown Strength Tablet, PO QDAY 09/26/17 Tetrahydrozoline Hcl (EYE DROPS) Unknown Strength Drops, OP PRN 09/26/17 Enalapril Maleate (VASOTEC) 20 Mg Tablet, 20 MG PO QDAY 09/26/17 Vitamin B Complex (VITAMIN B COMPLEX) 1 Each Capsule, 1 EACH PO QDAY, CAPSULE 08/18/16 Multivitamins-Min/Fa/Ginkgo (ONE DAILY FOR WOMEN 50+ ADV TB) 1 Each Tablet, 1 EACH PO DAILY 08/22/14 Potassium Chloride (Potassium Chloride) 20 Meq Tablet.er, 1 TAB PO DAILY 08/22/14 Hydrochlorothiazide (HYDROCHLOROTHIAZIDE) 25 Mg Tablet, 1 TAB PO QDAY TAKE ONE TABLET BY MOUTH EVERY DAY 06/07/14 Reviewed Nurses Notes: Yes Hx Smoking: No Smoking Status: Never Smoker Hx Substance Use Disorder: No Hx Alcohol Use: Yes Constitutional Vital Sign - Last 24 Hours 01/13/19 01/13/19 01/13/19 01/13/19 18:25 18:30 18:45 19:17 Temp 98.2 Pulse 70 64 64 Resp 20 12 20 B/P (MAP) 225/97 228/85 (132) Pulse Ox 93 96 93 O2 Delivery Room Air 01/13/19 01/13/19 01/13/19 01/13/19 19:19 19:30 19:45 19:54 Pulse 60 56 Resp 22 8 B/P (MAP) 229/98 (141) 165/72 (103) Pulse Ox 93 94 01/13/19 01/13/19 01/13/19 01/13/19 20:00 20:15 20:23 20:30 Pulse 57 56 54 Resp 24 9 24 B/P (MAP) 141/62 (88) Pulse Ox 94 89 90 01/13/19 01/13/19 01/13/19 01/13/19 21:00 21:07 21:15 21:30 Pulse 51 50 Resp 11 20 B/P (MAP) 124/31 (62) 138/64 (88) 151/72 (98) Pulse Ox 93 94 01/13/19 01/13/19 01/13/19 21:38 21:45 22:00 Pulse 48 Resp 9 B/P (MAP) 145/55 (85) 132/54 (80) 116/49 (71) Pulse Ox 89 Physical Exam General Appearance: The patient is alert. No acute distress. Non-toxic in appearance. Eyes: Pupils are equal, round. No pallor, injection or icterus. ENT: Mucous membranes are moist. Normal oral mucosa. Respiratory: Lungs are clear to auscultation. Cardiovascular: Regular rate and rhythm. No murmurs, gallops or rubs. Normal capillary refill. Trace edema bilateral ankles. Gastrointestinal: Abdomen is soft and non tender. Nondistended. Normal active bowel sounds. Neurological: Alert and oriented x3. No focal neurologic deficits other than chronic visual troubles. Moving all extremities without deficits. Skin: Warm and dry. No rashes. DIFFERENTIAL DIAGNOSIS: After history and physical exam, differential diagnosis was considered for hypertensive urgency with headache. Medical Decision Making Data Points Result Diagram: 01/13/19 1832 01/13/19 1832 Laboratory Hematology Test 01/13/19 18:32 01/13/19 19:15 Red Blood Count 5.19 M/uL (4.17-5.56) Mean Corpuscular Volume 87.3 fL (80.0-96.0) Mean Corpuscular Hemoglobin 29.7 pg (26.0-33.0) Mean Corpuscular Hemoglobin Concent 34.0 g/dL (32.0-36.0) Red Cell Distribution Width 13.3 % (11.5-14.5) Mean Platelet Volume 9.0 fL (7.2-11.1) Neutrophils (%) (Auto) 40.7 % (39.4-72.5) Lymphocytes (%) (Auto) 43.7 % (17.6-49.6) Monocytes (%) (Auto) 13.6 % (4.1-12.4) Eosinophils (%) (Auto) 1.3 % (0.4-6.7) Basophils (%) (Auto) 0.7 % (0.3-1.4) Nucleated RBC Relative Count (auto) 0.0 /100WBC Neutrophils # (Auto) 2.0 K/uL (2.0-7.4) Lymphocytes # (Auto) 2.2 K/uL (1.3-3.6) Monocytes # (Auto) 0.7 K/uL (0.3-1.0) Eosinophils # (Auto) 0.1 K/uL (0.0-0.5) Basophils # (Auto) 0.0 K/uL (0.0-0.1) Nucleated RBC Absolute Count (auto) 0.00 K/uL Erythrocyte Sedimentation Rate 9 mm/HOUR (0-30) Sodium Level 132 mmol/L (137-145) Potassium Level 3.4 mmol/L (3.5-5.0) Chloride Level 95 mmol/L (98-107) Carbon Dioxide Level 24 mmol/L (22-31) Blood Urea Nitrogen 10 mg/dl (7-18) Creatinine 0.60 mg/dl (0.52-1.04) Glomerular Filtration Rate Calc > 60.0 Random Glucose 116 mg/dl (75-110) Calcium Level 10.7 mg/dl (8.4-10.2) Total Bilirubin 0.9 mg/dl (0.2-1.3) Aspartate Amino Transf (AST/SGOT) 33 U/L (0-35) Alanine Aminotransferase (ALT/SGPT) 32 U/L (0-56) Alkaline Phosphatase 110 U/L (0-126) Troponin I < 0.012 ng/ml Total Protein 8.2 g/dl (6.3-8.2) Albumin 4.8 g/dl (3.5-5.0) Urine Color Colorless Urine Clarity Clear Urine pH 7.0 pH (4.8-9.5) Urine Specific [place] 1.002 Urine Protein Negative mg/dL (NEGATIVE) Urine Glucose (UA) Negative mg/dL (NEGATIVE) Urine Ketones Trace mg/dL (NEGATIVE) Urine Blood Negative (NEGATIVE) Urine Nitrite Negative (NEGATIVE) Urine Bilirubin Negative (NEGATIVE) Urine Urobilinogen Negative mg/dL (0.2-1.9) Urine Leukocyte Esterase Negative (NEGATIVE) Urine RBC None /HPF (0-2/HPF) Urine WBC None /HPF (0-5/HPF) Urine Squamous Epithelial Cells None /LPF (</=FEW) Urine Bacteria Negative /HPF (NONE-FEW) Urine Mucus None /HPF (NONE-FEW) Chemistry Test 01/13/19 18:32 01/13/19 19:15 White Blood Count 5.0 k/uL (4.5-11.0) Red Blood Count 5.19 M/uL (4.17-5.56) Hemoglobin 15.4 g/dL (12.0-16.0) Hematocrit 45.3 % (34.0-47.0) Mean Corpuscular Volume 87.3 fL (80.0-96.0) Mean Corpuscular Hemoglobin 29.7 pg (26.0-33.0) Mean Corpuscular Hemoglobin Concent 34.0 g/dL (32.0-36.0) Red Cell Distribution Width 13.3 % (11.5-14.5) Platelet Count 198 K/uL (150-450) Mean Platelet Volume 9.0 fL (7.2-11.1) Neutrophils (%) (Auto) 40.7 % (39.4-72.5) Lymphocytes (%) (Auto) 43.7 % (17.6-49.6) Monocytes (%) (Auto) 13.6 % (4.1-12.4) Eosinophils (%) (Auto) 1.3 % (0.4-6.7) Basophils (%) (Auto) 0.7 % (0.3-1.4) Nucleated RBC Relative Count (auto) 0.0 /100WBC Neutrophils # (Auto) 2.0 K/uL (2.0-7.4) Lymphocytes # (Auto) 2.2 K/uL (1.3-3.6) Monocytes # (Auto) 0.7 K/uL (0.3-1.0) Eosinophils # (Auto) 0.1 K/uL (0.0-0.5) Basophils # (Auto) 0.0 K/uL (0.0-0.1) Nucleated RBC Absolute Count (auto) 0.00 K/uL Erythrocyte Sedimentation Rate 9 mm/HOUR (0-30) Glomerular Filtration Rate Calc > 60.0 Calcium Level 10.7 mg/dl (8.4-10.2) Total Bilirubin 0.9 mg/dl (0.2-1.3) Aspartate Amino Transf (AST/SGOT) 33 U/L (0-35) Alanine Aminotransferase (ALT/SGPT) 32 U/L (0-56) Alkaline Phosphatase 110 U/L (0-126) Troponin I < 0.012 ng/ml Total Protein 8.2 g/dl (6.3-8.2) Albumin 4.8 g/dl (3.5-5.0) Urine Color Colorless Urine Clarity Clear Urine pH 7.0 pH (4.8-9.5) Urine Specific [place] 1.002 Urine Protein Negative mg/dL (NEGATIVE) Urine Glucose (UA) Negative mg/dL (NEGATIVE) Urine Ketones Trace mg/dL (NEGATIVE) Urine Blood Negative (NEGATIVE) Urine Nitrite Negative (NEGATIVE) Urine Bilirubin Negative (NEGATIVE) Urine Urobilinogen Negative mg/dL (0.2-1.9) Urine Leukocyte Esterase Negative (NEGATIVE) Urine RBC None /HPF (0-2/HPF) Urine WBC None /HPF (0-5/HPF) Urine Squamous Epithelial Cells None /LPF (</=FEW) Urine Bacteria Negative /HPF (NONE-FEW) Urine Mucus None /HPF (NONE-FEW) Urinalysis Test 01/13/19 19:15 Urine Color Colorless Urine Clarity Clear Urine pH 7.0 pH (4.8-9.5) Urine Specific [place] 1.002 Urine Protein Negative mg/dL (NEGATIVE) Urine Glucose (UA) Negative mg/dL (NEGATIVE) Urine Ketones Trace mg/dL (NEGATIVE) Urine Blood Negative (NEGATIVE) Urine Nitrite Negative (NEGATIVE) Urine Bilirubin Negative (NEGATIVE) Urine Urobilinogen Negative mg/dL (0.2-1.9) Urine Leukocyte Esterase Negative (NEGATIVE) Urine RBC None /HPF (0-2/HPF) Urine WBC None /HPF (0-5/HPF) Urine Squamous Epithelial Cells None /LPF (</=FEW) Urine Bacteria Negative /HPF (NONE-FEW) Urine Mucus None /HPF (NONE-FEW) EKG/Imaging EKG Interpretation 12 lead EKG: Rhythm: Normal sinus rhythm, rate [place]: normal QRS: normal ST segments: Nonspecific, no signs of ischemia Imaging EXAMINATION: CT head without IV contrast HISTORY: Elevated BP. TECHNIQUE: Axial CT images of the head were obtained from the vertex to the skull base without IV contrast, with coronal and sagittal 2D reconstructed images. One of the following dose optimization techniques was utilized in the performance of this exam: Automated exposure control; adjustment of the mA and/or kV according to the patient's size; or use of an iterative reconstructio n technique. Specific details can be referenced in the facility's radiology CT exam operational policy. COMPARISON: 08/18/2016. FINDINGS: There is mild age-appropriate parenchymal volume loss, with slight patchy low attenuation in the deep white matter compatible with chronic small vessel ische steven change. No CT evidence of intracranial hemorrhage, mass lesion, or acute infarct. No midline shift or extra-axial fluid collections. Samano-white differentiation is maintained. The calvarium is intact. The partially visualized paranasal sinuses and mastoid air cells are unopacified. Stable old depressed fracture of the medial left orbital wall. IMPRESSION: No CT evidence of acute intracranial pathology. Stable exam. Report Dictated By: Emiliano Vasques MD at 01/13/2019 7:40 PM EXAMINATION: Portable AP Chest HISTORY: Elevated blood pressure. COMPARISON: 08/13/2014 and 08/14/2013. FINDINGS: The lungs are clear. No focal consolidation or pleural effusion. No pneumothorax. Normal cardiomediastinal silhouette, with normal heart size and pulmonary vascularity. Aortic calcification. No acute osseous findings. Stable small sclerotic focus in the anterior left sixth rib, likely a small bone island. This has been present on prior studies dating back to 08/14/2013. IMPRESSION: No evidence of acute cardiopulmonary disease. Report Dictated By: Emiliano Vasques MD at 01/13/2019 7:37 PM ED Course/Re-evaluation Clinical Indication for ER IV: IV Access ED Course Blood pressure came down nicely with Clonidine 0.1mg oral dose followed by 1.25mg of Vasotec IV given as she had not taken her evening enalapril dose. Labs and CT scan were negative for acute problems other than mild changes in electrolytes. Recommended increase Enalapril to 10mg for the evening dose, all other doses the same. Will add as needed Clonidine and follow-up with pcp next week. Decision to Disposition Date: Jan 13, 2019 Decision to Disposition Time: 21:55 Depart Departure Latest Vital Signs Vital Signs Date Time Temp Pulse Resp B/P (MAP) Pulse Ox O2 Delivery O2 Flow Rate FiO2 01/13/19 22:00 48 9 116/49 (71) 89 01/13/19 18:25 98.2 Room Air Impression: Primary Impression: Hypertensive urgency Condition: Improved Disposition: HOME OR SELF-CARE Referrals: AALIYAH TALBOT (PCP) New Scripts Clonidine Hcl (CLONIDINE HCL) 0.1 Mg Tablet 0.1 MG PO BID PRN for HYPERTENSION, #20 TAB 0 Refills take one tablet twice a day if needed for elevated blood pressure Prov: LARRY ROY MD 01/13/19 Patient Instructions: Hypertension (ED) Additional Instructions: Keep taking your enalapril 20mg tablet in the morning. Keep taking your Hydrochlorothiazide 25mg in the morning. Keep taking the Amlodipine 2.5mg. Increase your evening Enalapril to 10mg in the evening. If blood pressure is over 190/90, you can take Clonidine 0.1mg tablet twice a day and the blood pressure should come down over the next hour. Return to the ER if this does not bring the blood pressure down. Follow-up with Aaliyah this week as planned and keep the appointment for the nuclear stress test. LARRY ROY MD Jan 13, 2019 18:23
[2019-01-13] MEDS ORDERED: cloNIDine HCL 0.1 MG TAB PO ONE (18:50)
[2019-01-13 18:55] LABS: PLATELET COUNT, AUTOMATED 198 K/uL (150-450)
--- NOTE | 2019-01-13 19:44 | RADIOLOGY IMAGING REPORT ---
FACILITY: [facility] [place] PATIENT NAME: Claire Han : 1945 MR: [id number] V: [id number] EXAM DATE: ORDERING PHYSICIAN: LARRY ROY TECHNOLOGIST: Location: [facility] Patient: Claire Han : 1945 Visit/Account:[id number] Date of Sevice: 01/13/2019 EXAMINATION: Portable AP Chest HISTORY: Elevated blood pressure. COMPARISON: 08/13/2014 and 08/14/2013. FINDINGS: The lungs are clear. No focal consolidation or pleural effusion. No pneumothorax. Normal cardiomediastinal silhouette, with normal heart size and pulmonary vascularity. Aortic calcif ication. No acute osseous findings. Stable small sclerotic focus in the anterior left sixth rib, likely a smal l bone island. This has been present on prior studies dating back to 08/14/2013. IMPRESSION: No evidence of acute cardiopulmonary disease. Report Dictated By: Emiliano Vasques MD at 01/13/2019 7:37 PM Report E-Signed By: Emiliano Vasques MD at 01/13/2019 7:39 PM WSN:[id number]
[2019-01-13] MEDS ORDERED: ENALAPRILAT 1.25 MG/ML VIAL IVP ONE (19:50)
--- NOTE | 2019-01-13 19:53 | RADIOLOGY IMAGING REPORT ---
FACILITY: [facility] - [place] PATIENT NAME: Claire Han : 1945 MR: [id number] V: [id number] EXAM DATE: ORDERING PHYSICIAN: LARRY ROY TECHNOLOGIST: Location: [facility] - [place] Patient: Claire Han : 1945 Visit/Account:[id number] Date of Sevice: 01/13/2019 EXAMINATION: CT head without IV contrast HISTORY: Elevated BP. TECHNIQUE: Axial CT images of the head were obtained from the vertex to the skull base without IV c ontrast, with coronal and sagittal 2D reconstructed images. One of the following dose optimization techniques was utilized in the performance of this exam: Autom ated exposure control; adjustment of the mA and/or kV according to the patient's size; or use of an i terative reconstruction technique. Specific details can be referenced in the facility's radiology C T exam operational policy. COMPARISON: 08/18/2016. FINDINGS: There is mild age-appropriate parenchymal volume loss, with slight patchy low attenuation in the deep white matter compatible with chronic small vessel ischemic change. No CT evidence of intracranial hemorrhage, mass lesion, or acute infarct. No midline shift or extra-a xial fluid collections. Samano-white differentiation is maintained. The calvarium is intact. The partially visualized paranasal sinuses and mastoid air cells are unopaci fied. Stable old depressed fracture of the medial left orbital wall. IMPRESSION: No CT evidence of acute intracranial pathology. Stable exam. Report Dictated By: Emiliano Vasques MD at 01/13/2019 7:40 PM Report E-Signed By: Emiliano Vasques MD at 01/13/2019 7:47 PM WSN:[id number]
[2019-01-13] MEDS ORDERED: CLON-327 PO (21:59)
[2019-01-13 22:00] VITALS: BP 116/49
--- NOTE | 2019-01-13 23:24 | EKG ---
FACILITY: [facility] PATIENT NAME: DIANE BOLTON : [id number] MR: [id number] V: [id number] EXAM DATE: ORDERING PHYSICIAN: LARRY ROY TECHNOLOGIST: ELYSE Test Reason : SYNCOPE Blood Pressure : / mmHG Vent. Rate : 066 BPM Atrial Rate : 066 BPM P-R Int : 160 ms QRS Dur : 092 ms QT Int : 404 ms P-R-T Axes : 066 043 084 degrees QTc Int : 423 ms Normal sinus rhythm Nonspecific ST and T wave abnormality Prominent U waves Abnormal ECG When compared with ECG of 09-JAN-2019 17:47, No significant change was found Confirmed by GAGAN ORELLANA ([id number]) on 01/14/2019 6:45:13 AM Referred By: Confirmed By:GAGAN ORELLANA
== END 2019-01-13 22:24 | disposition home or self-care (01) ==
LOC: ER 18:35
DX: I16.0 Hypertensive urgency (principal)
CPT/HCPCS: 70450; 71045; 81001; 84484; 85025; 85651; 93005; 96374; 99284; A9270; J3490; 82040; 82247; 82310; 82374; 82435; 82565; 82947; 84075; 84132; 84155; 84295; 84450; 84460; 84520

== ENCOUNTER → 2019-01-23 | Outpatient (CLI) | payer MEDICARE ==
[~2019-01-23] MED LIST changes: +CLON-327 PO; +REGADENOSON 0.4 MG/5 ML SYR ONE
== END ==
LOC: NUC 01:03
PROVIDERS: ATTEND Nurse Practitioner Family
DX: R53.83 Other fatigue (principal); I10 Essential (primary) hypertension
CPT/HCPCS: J2785

== ENCOUNTER → 2019-02-02 | Outpatient (CLI) | payer MEDICARE ==
[~2019-02-02] MED LIST changes: -REGADENOSON 0.4 MG/5 ML SYR ONE
--- NOTE | 2019-02-02 15:00 | RADIOLOGY IMAGING REPORT ---
FACILITY: [facility] PATIENT NAME: Claire Han : 1945 MR: [id number] V: [id number] EXAM DATE: ORDERING PHYSICIAN: REYMUNDO TALBOT TECHNOLOGIST: Location: [facility] [place] Patient: Claire Han : 1945 Visit/Account:[id number] Date of Sevice: 02/02/2019 EXAMINATION: Single isotope SPECT imaging with regadenoson infusion and gated SPECT imaging. DATE OF EXAMINATION: 02/02/2019. DATE OF INTERPRETATION: 02/02/2019. REQUESTING PHYSICIAN: REYMUNDO TALBOT. INDICATION: The patient is a 73-year-old female evaluated for fatigue. PROCEDURE: After informed consent the patient received an intravenous injection of 12.6 mCi of Tc-99 m sestamibi followed at an appropriate time interval by rest imaging. The patient then subsequently received an intravenous infusion of 0.4 mg of regadenoson per protocol without complication. Resting heart rate was 52 bpm with a peak heart rate of 71 bpm. Blood pressure at rest was 168 / 76 and fol lowing infusion was 168 / 76. Baseline EKG demonstrates sinus rhythm. There were no EKG changes of ischemia following infusion. Symptoms were nonspecific. The patient then received an intravenous in jection of 32.1 mCi of Tc-99m sestamibi followed by stress imaging. RAW DATA: Examination of the summed raw data revealed a good quality study. MYOCARDIAL PERFUSION: The tomographic images demonstrate normal myocardial perfusion with no evidenc e of infarct or ischemia. There is no TID. GATED IMAGES: The gated images demonstrate hyperdynamic ejection fraction >70% with normal wall annita on and thickening. IMPRESSION: 1. Nondiagnostic Lexiscan stress ECG 2. Normal myocardial perfusion scan. 3. Hyperdynamic LV systolic function; LVEF >70%. 4. Based on the results of this exam, the patient appears to be at low risk for future cardiovascular events. Report Dictated By: Paulo Francis at 02/02/2019 2:52 PM Report E-Signed By: Paulo Francis at 02/02/2019 2:54 PM WSN:[id number]
== END ==
LOC: RESP 03:57
PROVIDERS: ATTEND Nurse Practitioner Family
DX: E83.52 Hypercalcemia (principal); R53.83 Other fatigue; I10 Essential (primary) hypertension
CPT/HCPCS: 78452; 93017; A9500; J2785

== ENCOUNTER → 2019-02-05 | Outpatient (CLI) | payer MEDICARE ==
--- NOTE | 2019-02-05 19:01 | RADIOLOGY IMAGING REPORT ---
FACILITY: [facility] - [place] PATIENT NAME: Claire Han : 1945 MR: [id number] V: [id number] EXAM DATE: ORDERING PHYSICIAN: REYMUNDO TALBOT TECHNOLOGIST: Location: [facility] - [place] Patient: Claire Han : 1945 Visit/Account:[id number] Date of Sevice: 02/05/2019 PARATHYROID IMAGING EXAMINATION: Nuclear Medicine Parathyroid Scan Additional Pertinent history: Hypercalcemia. COMPARISON STUDIES: None available TECHNIQUE: 24.6 mCi technetium 99m Sestamibi was injected intravenously. Gamma camera images were ob tained of the head, neck and chest at 15 minutes and three hours in various orientations following ra diotracer administration. FINDINGS: 15 minute images: normal uptake of tracer by the salivary glands, the thyroid gland, and the myocard ium. Excreted hepatobiliary activity is seen beneath the diaphragm. 3 hour images: normal washout of tracer from the thyroid gland. No focal areas of abnormal radiotrac er uptake are identified in the neck or mediastinum to suggest the presence of a parathyroid adenoma. IMPRESSION: 1. No focal area of abnormal increased uptake on the delayed 3 hour images to suggest a parathyroid a denoma on this exam.. Report Dictated By: Richard Baltazar MD at 02/05/2019 6:52 PM Report E-Signed By: Richard Baltazar MD at 02/05/2019 6:54 PM WSN:[id number]
== END ==
LOC: NUC 01:17
PROVIDERS: ATTEND Nurse Practitioner Family
DX: E83.52 Hypercalcemia (principal)
CPT/HCPCS: 78070; A9500

== ENCOUNTER 2019-02-13 12:42 | Emergency (ER) | payer MEDICARE ==
--- NOTE | 2019-02-13 12:49 | ER Report ---
History and Physical Time Seen By MD: 12:44 HPI/ROS CHIEF COMPLAINT: Odynophagia, hypertension, upper chest pain HISTORY OF PRESENT ILLNESS: Patient is a 73-year-old female here with complaints of odynophagia, upper chest pain, hypertension which has resolved prior to arrival. Patient reports that her identification has been ongoing for several weeks. Patient reports that today her pain acutely worsened and she contacted her PCP who referred her to the emergency department. Patient is hemodynamically stable at time of evaluation, afebrile, anxious appearing. Patient did have a nuclear stress test which placed her low risk for cardiac event. REVIEW OF SYSTEMS: Constitutional: No fever, no chills. Eyes: No discharge. ENT: + sore throat. Cardiovascular: + upper chest pain, no palpitations. Respiratory: No cough, + shortness of breath. Gastrointestinal: No abdominal pain, no vomiting. Genitourinary: No hematuria. Musculoskeletal: No back pain. Skin: No rashes. Neurological: No headache. Allergies: Coded Allergies: hydrocodone (Unverified Adverse Reaction, Intermediate, NAUSEA/VOMITING, 01/09/19) Home Meds Active Scripts Clonidine Hcl (CLONIDINE HCL) 0.1 Mg Tablet, 0.1 MG PO BID PRN for HYPERTENSION, #20 TAB 0 Refills take one tablet twice a day if needed for elevated blood pressure Prov:LARRY ROY MD 01/13/19 Omeprazole (OMEPRAZOLE) 40 Mg Capsule.dr, 1 CAP PO DAILY, #60 CAP 6 Refills Prov:JUAN VASQUES MD 11/21/17 Sucralfate (CARAFATE) 1 Gm Tablet, 1 GM PO QID PRN for DYSPEPSIA, #60 TAB 3 Refills Prov:JUAN VASQUES MD 11/21/17 Reported Medications Amlodipine Besylate (AMLODIPINE BESYLATE) 10 Mg Tablet, 1 TAB PO QDAY, TAB 02/13/19 Enalapril Maleate (ENALAPRIL MALEATE) 20 Mg Tablet, 20 MG PO BID 02/13/19 Magnesium Amino Acid Chelate (MAGNESIUM) Unknown Strength Tablet, PO QDAY 09/26/17 Vitamin E Mixed (VITAMIN E) Unknown Strength Tablet, PO QDAY 09/26/17 Tetrahydrozoline Hcl (EYE DROPS) Unknown Strength Drops, OP PRN 09/26/17 Vitamin B Complex (VITAMIN B COMPLEX) 1 Each Capsule, 1 EACH PO QDAY, CAPSULE 08/18/16 Potassium Chloride (Potassium Chloride) 20 Meq Tablet.er, 1 TAB PO DAILY 08/22/14 Hydrochlorothiazide (HYDROCHLOROTHIAZIDE) 25 Mg Tablet, 1 TAB PO QDAY TAKE ONE TABLET BY MOUTH EVERY DAY 06/07/14 Discontinued Reported Medications Calcium Carbonate/Vitamin D3 (CALCIUM + VITAMIN D TABLET) 1 Each Tablet, 1 EA PO QDAY 09/26/17 Enalapril Maleate (VASOTEC) 20 Mg Tablet, 20 MG PO QDAY 09/26/17 Multivitamins-Min/Fa/Ginkgo (ONE DAILY FOR WOMEN 50+ ADV TB) 1 Each Tablet, 1 EACH PO DAILY 08/22/14 Hx Smoking: No Smoking Status: Never Smoker Hx Substance Use Disorder: No Hx Alcohol Use: Yes Constitutional Vital Sign - Last 24 Hours 02/13/19 02/13/19 02/13/19 02/13/19 12:51 13:00 13:15 13:30 Temp 97.9 Pulse 66 64 Resp 18 35 B/P (MAP) 139/77 154/61 (92) 172/78 (109) 145/64 (91) Pulse Ox 95 91 90 O2 Delivery Room Air 02/13/19 02/13/19 02/13/19 02/13/19 14:00 14:15 14:30 14:45 Pulse 60 61 Resp 12 14 B/P (MAP) 147/64 (91) 145/98 (114) 158/64 (95) 163/68 (99) Pulse Ox 92 92 Physical Exam General Appearance: The patient is alert, has no immediate need for airway protection and no signs of toxicity. Anxious appearing Eyes: Pupils equal and round no pallor or injection. ENT, Mouth: Mucous membranes are moist. Respiratory: There are no retractions, lungs are clear to auscultation. Cardiovascular: Regular rate and rhythm. Gastrointestinal: Abdomen is soft and non tender, no masses, bowel sounds normal. Neurological: No focal neurological deficits, cranial nerves intact. Skin: Warm and dry, no rashes. Musculoskeletal: Neck is supple non tender. Extremities are nontender, nonswollen and have full range of motion. DIFFERENTIAL DIAGNOSIS: After history and physical exam differential diagnosis was considered for chest pain including but not limited to myocardial ischemia, pericarditis pulmonary embolus, chest wall pain, pleural inflammation and pulmon amelia infectious causes. Soft tissue mass, thyroid nodule, esophagitis, gastritis, reflux gastritis Medical Decision Making Data Points Result Diagram: 02/13/19 1251 02/13/19 1251 Laboratory Hematology Test 02/13/19 12:51 White Blood Count 5.7 k/uL (4.5-11.0) Red Blood Count 5.08 M/uL (4.17-5.56) Hemoglobin 15.3 g/dL (12.0-16.0) Hematocrit 45.0 % (34.0-47.0) Mean Corpuscular Volume 88.5 fL (80.0-96.0) Mean Corpuscular Hemoglobin 30.2 pg (26.0-33.0) Mean Corpuscular Hemoglobin Concent 34.1 g/dL (32.0-36.0) Red Cell Distribution Width 13.5 % (11.5-14.5) Platelet Count 221 K/uL (150-450) Mean Platelet Volume 8.9 fL (7.2-11.1) Neutrophils (%) (Auto) 65.7 % (39.4-72.5) Lymphocytes (%) (Auto) 27.6 % (17.6-49.6) Monocytes (%) (Auto) 5.2 % (4.1-12.4) Eosinophils (%) (Auto) 1.0 % (0.4-6.7) Basophils (%) (Auto) 0.5 % (0.3-1.4) Nucleated RBC Relative Count (auto) 0.0 /100WBC Neutrophils # (Auto) 3.8 K/uL (2.0-7.4) Lymphocytes # (Auto) 1.6 K/uL (1.3-3.6) Monocytes # (Auto) 0.3 K/uL (0.3-1.0) Eosinophils # (Auto) 0.1 K/uL (0.0-0.5) Basophils # (Auto) 0.0 K/uL (0.0-0.1) Nucleated RBC Absolute Count (auto) 0.00 K/uL Peripheral Blood Smear No Y/N Chemistry Test 02/13/19 12:51 Sodium Level 137 mmol/L (137-145) Potassium Level 3.4 mmol/L (3.5-5.0) Chloride Level 98 mmol/L (98-107) Carbon Dioxide Level 25 mmol/L (22-31) Blood Urea Nitrogen 10 mg/dl (7-18) Creatinine 0.70 mg/dl (0.52-1.04) Glomerular Filtration Rate Calc > 60.0 Random Glucose 145 mg/dl (75-110) Calcium Level 11.0 mg/dl (8.4-10.2) Total Bilirubin 1.0 mg/dl (0.2-1.3) Aspartate Amino Transf (AST/SGOT) 34 U/L (0-35) Alanine Aminotransferase (ALT/SGPT) 34 U/L (0-56) Alkaline Phosphatase 100 U/L (0-126) Troponin I < 0.012 ng/ml B-Type Natriuretic Peptide 63 pg/ml (0-100) Total Protein 8.3 g/dl (6.3-8.2) Albumin 4.7 g/dl (3.5-5.0) Serology Test 02/13/19 12:54 Group A Streptococcus (PCR) Negative (NEGATIVE) EKG/Imaging EKG Interpretation PATIENT NAME: CLAIRE HAN : [id number] MR: [id number] V: [id number] EXAM DATE: ORDERING PHYSICIAN: ANTONIETA CERDA TECHNOLOGIST: TROY Test Reason : HEART MURMUR Blood Pressure : / mmHG Vent. Rate : 062 BPM Atrial Rate : 062 BPM P-R Int : 146 ms QRS Dur : 090 ms QT Int : 414 ms P-R-T Axes : 063 023 108 degrees QTc Int : 420 ms Normal sinus rhythm Nonspecific ST and T wave abnormality Abnormal ECG When compared with ECG of 13-JAN-2019 18:50, No significant change was found Referred By: PRASHANT Confirmed By: Imaging PATIENT NAME: Claire Han : 1945 MR: [id number] V: [id number] EXAM DATE: ORDERING PHYSICIAN: ANTONIETA CERDA TECHNOLOGIST: Location: [facility] - [place] Patient: Claire Han : 1945 Visit/Account:[id number] Date of Sevice: 02/13/2019 EXAMINATION: CT chest with IV contrast HISTORY: Throat and chest pain. COMPARISON: Chest radiograph from 01/13/2019. CT of the chest from 04/12/2014. TECHNIQUE: Axial images were taken through the chest during injection of nonionic iodinated intravenous contrast. Sagittal and coronal reformatted images are also submitted. CONTRAST: 75 mL of IV Isovue-370 One of the following dose optimization techniques was utilized in the performance of this exam: Automated exposure control; adjustment of the mA and/or kV according to the patient's size; or use of an iterative reconstruction technique. Specific details can be referenced in the facility's radiology CT exam operational policy. FINDINGS: Lungs / pleura: No focal consolidation, pleural effusion, or pneumothorax. A 2 mm nodule in the right middle lobe which appears unchanged since previous CT examination on 04/12/2014. Mediastinum / gunner: Negative. Heart / pericardium: Negative. Vessels: Mild plaque of the thoracic aorta. 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 Mild multilevel disc degenerative changes in the thoracic spine. Lymph node assessment: Negative. Lower neck: A few small nodules in the thyroid. Upper abdomen: Negative. IMPRESSION: No CT evidence of acute intrathoracic pathology. Since previous examination in 2013, the left subscapular lipoma has mildly increased in size. PATIENT NAME: Claire Han : 1945 MR: [id number] V: [id number] EXAM DATE: [id number] ORDERING PHYSICIAN: ANTONIETA CERDA TECHNOLOGIST: Location: [facility] - [place] Patient: Claire Han : 1945 Visit/Account:[id number] Date of Sevice: 02/13/2019 EXAMINATION: CT neck with IV contrast HISTORY: Throat pain. Odynophagia. COMPARISON: None. TECHNIQUE: Spiral scan was obtained from the hard palate through the upper chest during injection of nonionic iodinated intravenous contrast. Sagittal and coronal reformatted images are also submitted. CONTRAST: 75 mL of IV Isovue-370 One of the following dose optimization techniques was utilized in the performance of this exam: Automated exposure control; adjustment of the mA and/or kV according to the patient's size; or use of an iterative reconstruction technique. Specific details can be referenced in the facility's radiology CT exam operational policy. FINDINGS: Masses/lesions: There are a few small nodules in the thyroid, the largest in the left lobe measuring 6 mm. No abscess or significant soft tissue swelling is seen in the neck. Airway: Normal. Vessels: Mild plaque at the aortic arch. Musculoskeletal / Body wall: Multilevel disc and facet degenerative changes in the cervical spine. Lymph node assessment: Negative. Visualized brain / paranasal sinuses: Negative. Upper chest: Negative. IMPRESSION: No abscess or significant soft tissue swelling is seen in the neck. Multiple thyroid nodules are present. A 6 mm thyroid nodule in the left lobe has no suspicious features. In the absence of clinical risk factors for thyroid cancer, this finding is highly likely benign and no additional imaging or follow-up is recommended. Report Dictated By: Cleveland Voss MD at 02/13/2019 2:15 PM Report E-Signed By: Cleveland Voss MD at 02/13/2019 2:26 PM WSN:[id number] ED Course/Re-evaluation ED Course Patient is a 73-year-old female here with complaints of hypertension which is resolved, sore throat which is ongoing for several weeks. Strep swab is negative. CT imaging of the neck and chest were negative, troponin was negative. There is no leukocytosis, which lites are stable. Recommend patient follows up with her PCP closely and her nose and throat. EKG showed no ischemic findings or arrhythmias. Patient was given a normal saline bolus, Magic mouthwash. Patient was hemodynamically stable throughout course. Return precautions provided. Decision to Disposition Date: Feb 13, 2019 Decision to Disposition Time: 16:12 Depart Departure Latest Vital Signs Vital Signs Date Time Temp Pulse Resp B/P (MAP) Pulse Ox O2 Delivery O2 Flow Rate FiO2 02/13/19 14:45 163/68 (99) 02/13/19 14:30 61 14 92 02/13/19 12:51 97.9 Room Air Impression: Primary Impression: Odynophagia Additional Impression: Hypertension Condition: Improved Disposition: HOME OR SELF-CARE Referrals: REYMUNDO TALBOT (PCP) Patient Instructions: Hypertension (ED) Additional Instructions: Please follow up closely with her family provider with consideration for ear nose and throat follow-up. Please return promptly if you develop fevers, worsening pain, difficulty swallowing, difficulty breathing. If you find that you're hypertensive you may take her clonidine tablet as needed. Problem Qualifiers ANTONIETA CERDA DO Feb 13, 2019 12:49
[2019-02-13] MEDS ORDERED: NS(*) 0.9% 500 ML BAG 500 ML IV ONE (13:00)
[2019-02-13] MEDS ORDERED: LIDOCAINE 2% VISC SLN 15ML UDC PO ONE (13:00)
[2019-02-13] MEDS ORDERED: ENAL20TA99 PO (13:03)
[2019-02-13] MEDS ORDERED: AMLO-127 PO (13:03)
[2019-02-13 13:15] LABS: PLATELET COUNT, AUTOMATED 221 K/uL (150-450)
--- NOTE | 2019-02-13 13:15 | EKG ---
FACILITY: [facility] PATIENT NAME: DIANE OBLTON : [id number] MR: [id number] V: [id number] EXAM DATE: ORDERING PHYSICIAN: ANTONIETA CERDA TECHNOLOGIST: TROY Test Reason : HEART MURMUR Blood Pressure : / mmHG Vent. Rate : 062 BPM Atrial Rate : 062 BPM P-R Int : 146 ms QRS Dur : 090 ms QT Int : 414 ms P-R-T Axes : 063 023 108 degrees QTc Int : 420 ms Normal sinus rhythm Nonspecific ST and T wave abnormality Abnormal ECG When compared with ECG of 13-JAN-2019 18:50, No significant change was found Confirmed by JUAN FERNANDO ([id number]) on 02/13/2019 4:50:52 PM Referred By: PRASHANT Confirmed By:JUAN FERNANDO
[2019-02-13] MEDS ORDERED: IOPAMIDOL 76% 100 ML INFUS BTL 100 ML ONE (13:41)
--- NOTE | 2019-02-13 14:34 | RADIOLOGY IMAGING REPORT ---
FACILITY: [facility] - [place] PATIENT NAME: Claire Han : 1945 MR: [id number] V: [id number] EXAM DATE: ORDERING PHYSICIAN: ANTONIETA CERDA TECHNOLOGIST: Location: [facility] Patient: Claire Han : 1945 Visit/Account:[id number] Date of Sevice: 02/13/2019 EXAMINATION: CT neck with IV contrast HISTORY: Throat pain. Odynophagia. COMPARISON: None. TECHNIQUE: Spiral scan was obtained from the hard palate through the upper chest during injection o f nonionic iodinated intravenous contrast. Sagittal and coronal reformatted images are also submitte d. CONTRAST: 75 mL of IV Isovue-370 One of the following dose optimization techniques was utilized in the performance of this exam: Autom ated exposure control; adjustment of the mA and/or kV according to the patient's size; or use of an i terative reconstruction technique. Specific details can be referenced in the facility's radiology C T exam operational policy. FINDINGS: Masses/lesions: There are a few small nodules in the thyroid, the largest in the left lobe measuring 6 mm. No abscess or significant soft tissue swelling is seen in the neck. Airway: Normal. Vessels: Mild plaque at the aortic arch. Musculoskeletal / Body wall: Multilevel disc and facet degenerative changes in the cervical spine. Lymph node assessment: Negative. Visualized brain / paranasal sinuses: Negative. Upper chest: Negative. IMPRESSION: No abscess or significant soft tissue swelling is seen in the neck. Multiple thyroid nodules are present. A 6 mm thyroid nodule in the left lobe has no suspicious featu res. In the absence of clinical risk factors for thyroid cancer, this finding is highly likely benign and no additional imaging or follow-up is recommended. Report Dictated By: Cleveland Voss MD at 02/13/2019 2:15 PM Report E-Signed By: Cleveland Voss MD at 02/13/2019 2:26 PM WSN:[id number]
--- NOTE | 2019-02-13 14:48 | RADIOLOGY IMAGING REPORT ---
FACILITY: [facility] PATIENT NAME: Claire Han : 1945 MR: [id number] V: [id number] EXAM DATE: ORDERING PHYSICIAN: ANTONIETA CERDA TECHNOLOGIST: Location: [facility] Patient: Claire Han : 1945 Visit/Account:[id number] Date of Sevice: 02/13/2019 EXAMINATION: CT chest with IV contrast HISTORY: Throat and chest pain. COMPARISON: Chest radiograph from 01/13/2019. CT of the chest from 04/12/2014. TECHNIQUE: Axial images were taken through the chest during injection of nonionic iodinated intrave nous contrast. Sagittal and coronal reformatted images are also submitted. CONTRAST: 75 mL of IV Isovue-370 One of the following dose optimization techniques was utilized in the performance of this exam: Autom ated exposure control; adjustment of the mA and/or kV according to the patient's size; or use of an i terative reconstruction technique. Specific details can be referenced in the facility's radiology C T exam operational policy. FINDINGS: Lungs / pleura: No focal consolidation, pleural effusion, or pneumothorax. A 2 mm nodule in the righ t middle lobe which appears unchanged since previous CT examination on 04/12/2014. Mediastinum / gunner: Negative. Heart / pericardium: Negative. Vessels: Mild plaque of the thoracic aorta. 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 Mild multilevel disc degenerative changes in the thoracic spine. Lymph node assessment: Negative. Lower neck: A few small nodules in the thyroid. Upper abdomen: Negative. IMPRESSION: No CT evidence of acute intrathoracic pathology. Since previous examination in 2013, the left subscapular lipoma has mildly increased in size. Report Dictated By: Cleveland Voss MD at 02/13/2019 2:26 PM Report E-Signed By: Cleveland Voss MD at 02/13/2019 2:40 PM WSN:[id number]
[2019-02-13 16:00] VITALS: BP 165/81
== END 2019-02-13 16:32 | disposition home or self-care (01) ==
LOC: ER 13:05
DX: R13.10 Dysphagia, unspecified (principal); I10 Essential (primary) hypertension
CPT/HCPCS: 70491; 71260; 83880; 84484; 85025; 87653; 93005; 96360; 96361; 99284; A9270; J7040; Q0163; Q9967; 82040; 82247; 82310; 82374; 82435; 82565; 82947; 84075; 84132; 84155; 84295; 84450; 84460; 84520

== ENCOUNTER → 2019-03-05 | Outpatient (CLI) | payer MEDICARE ==
[~2019-03-05] MED LIST changes: +AMLO-127 PO
[2019-03-05 10:41] LABS: LDL CHOLESTEROL 151 mg/dl
--- NOTE | 2019-03-05 18:29 | RADIOLOGY IMAGING REPORT ---
FACILITY: [facility] - [place] PATIENT NAME: Claire Han : 1945 MR: [id number] V: [id number] EXAM DATE: ORDERING PHYSICIAN: MARISA REYNOSO TECHNOLOGIST: Location: [facility] Patient: Claire Han : 1945 Visit/Account:[id number] Date of Sevice: 03/05/2019 US ARTERIAL RENAL DUPX DOPPLER Indication: 73-year-old female with hypertension. Evaluate kidneys and renal arteries. Procedure: There has been satisfactory grayscale ultrasonic evaluation of the kidneys and bladder. Comparison: CT scan abdomen and pelvis September 02, 2017. Findings: Right side: The right kidney measures 10.0 cm x 5.3 cm x 4.5 cm in its sagittal, transverse and AP dimensions. Th e right kidney demonstrates no findings of hydronephrosis or nephrolithiasis. Doppler right kidney: The proximal right renal artery systolic velocity is 158 cm/s. Blood flow in th e more distal right renal artery isn't 104 cm/s. Peak systolic velocity in the aorta is 174 cm/s. The findings are not suggestive of stenosis. Resistive index right kidney ranges from 0.64-0.77. There is no diminished upstroke of the peak systo lic Doppler waveform. Left side: The left kidney measures 10.2 cm x 5.1 cm x 5.2 cm in its sagittal, transverse and AP dimensions. The left kidney demonstrates no findings of hydronephrosis. Doppler left kidney: The proximal left renal artery shows a peak systolic velocity of 135 cm/s. In th e more distal left renal artery velocity is 155 cm/s. The findings are not suggestive of renal artery stenosis. Resistive index left kidney ranges from 0.72-0.77. The upstroke of the systolic Doppler waveform does not appear to be dampened. Bladder: The bladder is not imaged. IMPRESSION: 1. The kidneys have symmetrical size and there are no findings of a mass or hydronephrosis. 2. There are no findings of renal artery stenosis as measured by the peak systolic flow velocities in the left and right renal artery. Note that interrogation of the waveforms also shows no findings to suggest renal artery stenosis. 3. Note that the CT scan from September 02, 2017 showed no significant atherosclerotic change at the o rigin of the right or left renal artery. Report Dictated By: Chaz Radford MD at 03/05/2019 6:14 PM Report E-Signed By: Chaz Radford MD at 03/05/2019 6:21 PM WSN:[id number]
== END ==
LOC: US 00:51
PROVIDERS: ATTEND Internal Medicine Cardiovascular Disease
DX: E78.00 Pure hypercholesterolemia, unspecified (principal); I10 Essential (primary) hypertension
CPT/HCPCS: 36415; 82040; 82247; 82310; 82374; 82435; 82465; 82565; 82947; 83718; 84075; 84132; 84155; 84295; 84450; 84460; 84478; 84520; 93975